=== PATIENT | male | born 1955 | race Asian ===

== ENCOUNTER 2016-07-24 10:33 | Inpatient (IN) | payer BC ==
--- NOTE | ~2016-07-24 | CR72 ---
[facility] A Service of [facility] & [facility] RADIOLOGY TEXT RESULTS PATIENT: BRANDEN SINGH LOCATION: [facility] : 55 UNIT #: [id number] AGE: [address]: Mark Hartman DO SEX: M ORDER DR: [id number] [facility] [address] [place], [place] [address] [id number] E MR#: [id number] Acc #: [id number] NAME: BRANDEN SINGH : 1955 SEX: M STUDY DATE/TIME: 07/24/2016 0953 UNIT: [facility] ROOM: STUDY DESCRIPTION: CR Chest Single View Portable Attending Physician: Mark Hartman D.O. Ordering Physician: Mark Hartman D.O. Primary Care Physician: No Primary Care Physician MEDICAL IMAGING REPORT This report is preliminary unless electronic signature is present EXAM Chest, portable, 07/24/2016, 0953 hours. CLINICAL HISTORY 61-year-old man with a 2-day history of dizziness and shortness of air. COMPARISON None FINDINGS Single upright portable view demonstrates heart size within normal limits. Mediastinal, hilar, and aortic contours are normal. The pulmonary vascularity is normal and the lungs are clear. There is no effusion or pneumothorax. IMPRESSION No acute cardiopulmonary findings. Dictated by... Katelyn Kirkland M.D. THIS IS AN ELECTRONICALLY VERIFIED REPORT Katelyn Kirkland M.D. at 07/24/2016 2:07 PM EDD/sharona TD: 07/24/2016 12:23 JOB #: [id number] MEDICAL IMAGING REPORT Page 1 of 1 COPY
--- NOTE | ~2016-07-24 | ST ---
Unit #: [id number] #: [id number] Patient: BRANDEN SINGH [id number] [facility]. [address] [place], [place] [address] [id number] I MR#: [id number] NAME: BRANDEN SINGH : 1955 SEX: M STUDY DATE/TIME: 07/25/2016 UNIT: C5B ROOM: 559 STUDY DESCRIPTION: Attending Physician: James Charles M.D. Primary Care Physician: No Primary Care Physician CARDIOLOGY REPORT EXAM Exercise Cardiolite stress test. FINDINGS Baseline EKG: Normal sinus rhythm with ventricular rate 85 beats per minute, left atrial abnormality, Q wave in V1, low voltage in aVL and V2. PROCEDURE Patient walked on the treadmill for 7 minutes utilizing Nain protocol, achieving a workload of 7.8 METs. Next, 86% of maximum target heart rate achieved at 137 beats per minute with a maximum blood pressure response of 197/116 mmHg. Next, EKG during the test showed [address] depression in inferior and anterolateral leads which had some improvement toward the end of recovery phase. The patient had no complaints of chest pain, palpitations, or dizziness. IMPRESSION 1. Functional class III with a workload of 7.8 METs. 2. The patient walked for 7 minutes, achieving 86% of maximum target heart rate at 137 beats per minute with a hypertensive blood pressure response of 197/116 mmHg. 3. It is noted that patient's blood pressure decreased down to 179/100 at the end of recovery phase. 4. EKG during the test showed [address] depression inferior/anterolateral leads which showed some improvement toward the end of the recovery phase. 5. Cardiolite was injected at maximum target heart rate. 6. It is noted called the floor staff nurse to instruct to give his morning blood pressure medications as soon as possible. It is noted that he did not have his morning blood pressure medications. 7. Radionuclide test pending. Please correlate with nuclear images. Dictated by... Agustina Aquino A.P.R.N. for Ekta Alfaro/casi TD: 07/25/2016 12:21 JOB #: [id number] Unit #: [id number] #: [id number] Patient: BRANDEN SINGH CARDIOLOGY REPORT Page 1 of 1 X Agustina Aquino APRN CARDIOLOGY REPORT
--- NOTE | ~2016-07-24 | EKG ---
PATIENT: BRANDEN SINGH UNIT #: [id number] Ventricular Rate: 65 BPM Atrial Rate: 65 BPM P-R Interval: 144 ms QRS Duration: 76 ms Q-T Interval: 398 ms QTC Calculation(Bezet): 413 ms P [place]: 55 degrees Calculated R [place]: 39 degrees Calculated T [place]: 58 degrees Diagnosis Line: Normal sinus rhythm Diagnosis Line: Normal ECG Diagnosis Line: Diagnosis Line: Confirmed by PATRICIA WATTERS MD ([id number]) on Diagnosis Line: 07/25/2016 11:02:33 PM INTERPRETING MD: SEBASTIAN
--- NOTE | ~2016-07-24 | CT71 ---
[facility] A Service of [facility] & [facility] RADIOLOGY TEXT RESULTS PATIENT: BRANDEN SINGH LOCATION: [facility] 559-01 : 55 UNIT #: [id number] AGE: [address]: James Charles MD SEX: M ORDER DR: [id number] [facility] [address] [place], [place] [address] [id number] E MR#: [id number] #: [id number] NAME: BRANDEN SINGH : 1955 SEX: M STUDY DATE/TIME: 07/24/2016 10:45 UNIT: [facility] ROOM: STUDY DESCRIPTION: CT Head Wo Contrast Attending Physician: Mark Hartman D.O. Ordering Physician: Mark Hartman D.O. Primary Care Physician: Primary Care Physician No MEDICAL IMAGING REPORT This report is preliminary unless electronic signature is present EXAM CT of the brain without contrast 07/24/2016. HISTORY History supplied is dizziness, shortness of breath for 2 days. TECHNIQUE Axial imaging of the brain was performed without contrast media. This CT exam was performed with one or more of the following radiation dose reduction techniques: automatic exposure control, adjustment of mA and/or kV according to patient size, and iterative reconstruction. FINDINGS Ventricular size and configuration is normal. There is a focal area of low attenuation in the right side of the rhett. It measures approximately 8 mm in diameter. There is no associated mass effect or edema. There is no evidence of adjacent hemorrhage. There are dense calcifications in the basal ganglia. No other mass lesions, mass effect, acute hemorrhage or edema. No intra or extraaxial fluid collections are present. Bone windows are reviewed. Mastoid air cells are normally aerated. The paranasal sinuses are clear. CONCLUSION Focal area of low attenuation right side of the rhett measuring 8 mm in diameter. Statistically this most likely represents an area of prior infarction. Please correlate with the patient's clinical findings. It appears chronic. Remainder of the scan is normal. Dictated by... Nicolás Varela M.D. THIS IS AN ELECTRONICALLY VERIFIED REPORT [facility] A Service of [facility] & [facility] RADIOLOGY TEXT RESULTS PATIENT: BRANDEN SINGH LOCATION: [facility] 559-01 : 55 UNIT #: [id number] AGE: [address]: James Charles MD SEX: M ORDER DR: Nicolás Varela M.D. at 07/25/2016 7:10 AM Gillian TD: 07/24/2016 12:58 JOB #: [id number] MEDICAL IMAGING REPORT Page 1 of 1 COPY
--- NOTE | ~2016-07-24 | TH ---
Unit #: [id number] #: [id number] Patient: BRANDEN SINGH [id number] [address] [address] [id number] I MR#: [id number] NAME: BRANDEN SINGH : 1955 SEX: M STUDY DATE/TIME: 07/25/2016 UNIT: C5B ROOM: 559 STUDY DESCRIPTION: Exercise cardiolite Attending Physician: James Charles M.D. Primary Care Physician: Janell Primary Care Physician CARDIOLOGY REPORT EXAM Exercise Cardiolite stress test, nuclear portion. PROCEDURE Using technetium-99m labeled Cardiolite, rest and stress SPECT images were obtained. Multiple SPECT images were obtained in various views including horizontal and vertical long axis and short axis views of the left ventricle. Images were obtained by gated SPECT method. Patient was administered 9.9 mCi of Cardiolite at rest. Patient was administered 28 mCi of Cardiolite at peak exercise. On the stress images, there is an extremely large area of severe decreased isotope activity involving the entire anterior wall, anteroapical, anteroseptal, and inferoapical wall of the left ventricle. The rest images show normal perfusion. Comparing rest and stress images, there is an extremely large area of stress induced ischemia involving the anterior wall, anteroapical, inferoapical, and anteroseptal wall of the left ventricle. The left ventricular ejection fraction is calculated to be 58%. There is hypokinesis of the anteroapical wall. The left ventricular cavity is mildly dilated post stress. CONCLUSIONS 1. There is an extremely large area of stress induced ischemia involving the anterior wall, anteroapical, inferoapical, and anteroseptal wall of the left ventricle. 2. The left ventricular ejection fraction is calculated to be 58%. 3. There is hypokinesis involving the anteroapical wall. 4. The left ventricular cavity is mildly dilated post stress. 5. High suspicion for significant lesion involving the LAD or left main territory. Dictated by.Ekta Nails TD: 07/25/2016 13:31 JOB #: [id number] Unit #: [id number] #: [id number] Patient: NORIS SINGHH CARDIOLOGY REPORT Page 1 of 1 X Virgie Ordoñez MD <ELECTRONICALLY SIGNED> 10/18/16 1422 CARDIOLOGY REPORT
--- NOTE | ~2016-07-24 | EKG ---
PATIENT: BRANDEN SINGH UNIT #: [id number] Ventricular Rate: 72 BPM Atrial Rate: 72 BPM P-R Interval: 166 ms QRS Duration: 74 ms Q-T Interval: 396 ms QTC Calculation(Bezet): 433 ms P [place]: 67 degrees Calculated R [place]: 50 degrees Calculated T [place]: 75 degrees Diagnosis Line: Normal sinus rhythm Diagnosis Line: Nonspecific T wave abnormality Diagnosis Line: Abnormal ECG Diagnosis Line: When compared with ECG of 24-JUL-2016 09:46, Diagnosis Line: Nonspecific T wave abnormality, worse in Diagnosis Line: Anterolateral leads Diagnosis Line: Confirmed by PATRICIA WATTERS MD ([id number]) on Diagnosis Line: 07/28/2016 9:56:47 PM INTERPRETING MD: SEBASTIAN
--- NOTE | ~2016-07-24 | DS ---
Unit #: [id number] #: [id number] Patient: BRANDEN SINGH [id number] [address] [address] [id number] I MR#: [id number] NAME: BRANDEN SINGH ROOM: 559 Age: 61 Sex: M Admission Date: 07/24/2016 : 1955 Discharge Date: 07/29/2016 Attending Physician: James Charles M.D. Primary Care Physician: No Primary Care Physician DISCHARGE SUMMARY ADMITTING DIAGNOSES 1. Chest pain. 2. Dizziness. 3. Dyspnea on exertion. 4. Hypertension. 5. Hyperlipidemia. 6. Coronary artery disease with history of PCI 01/2006 to the LAD. DISCHARGE DIAGNOSES 1. Chest pain, resolved. 2. Dizziness. 3. Dyspnea on exertion. 4. Hypertension. 5. Hyperlipidemia. 6. Coronary artery disease with history of percutaneous coronary intervention 01/2006 to the left anterior descending. PROCEDURES PERFORMED 1. 07/28/2016 - the patient had a left heart catheterization with Dr. Charles. This showed a normal left main, LAD with 100% stenosis, left circumflex and RCA were normal. 2. EKG from 07/24/2016 showed normal sinus rhythm with no ST abnormality. 3. Stress Cardiolite on 07/25/2016, which showed 1 to 1 1/[address] depression in the infero/anterolateral leads. Stress images showed a large area of stress induced ischemia involving the anterior wall, anteroapical, inferoapical, and anteroseptal wall of the left ventricle. Ejection fraction was 58%. There was hypokinesis involving the anteroapical wall. HOSPITAL COURSE The patient is a 61-year-old [place] male who presented to the emergency department with complaints of chest pain. Serial troponin and EKGs were negative. The patient has a stress Cardiolite as discussed above and left heart catheterization was advised. This was performed on 07/28/2016 as discussed above. At this time Dr. Charles has advised the patient to continue medical therapy. If the angina continues they will plan to open the LAD by either PCI of consider single vessel CABG to the LAD. The patient has been advised to walk two miles daily and to stop sugar containing foods per Dr. Charles. This was discussed with the patient's sister who speaks Malian well. DISCHARGE MEDICATIONS 1. Carafate 2 g q.h.s. 2. Aspirin 81 mg daily. Unit #: [id number] #: [id number] Patient: BRANDEN SINGH 3. Plavix 75 mg daily. 4. Protonix 40 mg daily. 5. Vitamin D3 1,000 units daily. 6. Zyrtec 10 mg q.h.s. 7. Lipitor 80 mg daily. 8. Coreg 25 mg twice daily. 9. Norvasc 5 mg q.h.s. 10. Micardis 80 mg daily. 11. Carafate 1 g q. a.m. 12. Sublingual nitroglycerin 0.4 mg p.r.n. chest pain. 13. Imdur 30 mg daily. DISCHARGE INSTRUCTIONS The patient will be discharged home. Again he was advised to walk two miles daily, follow a heart healthy diet and limit sugar intake. He will followup with Dr. Charles on 10/01/2016 at 4:15 p.m. Dictated by... Tianna Lozano PRonaldA.C. for James Charles M.D. CMG/zana TD: 07/30/2016 08:36 JOB #: [id number] DISCHARGE SUMMARY Page 1 of 1 X X DISCHARGE SUMMARY
--- NOTE | ~2016-07-24 | HP ---
Unit #: [id number] #: [id number] Patient: BRANDEN SINGH [id number] [address] [place], [place] [address] [id number] E MR#: [id number] NAME: BRANDEN SINGH ROOM: Age: 61 Sex: M Admission Date: 07/24/2016 : 1955 Attending Physician: Mark Hartman D.O. Primary Care Physician: No Primary Care Physician HISTORY AND PHYSICAL CHIEF COMPLAINT Dizziness and shortness of breath. HISTORY OF PRESENT ILLNESS This is a 61-year-old [place] male. This history was taken with child study team director services. He has a prior medical history of hypertension, high cholesterol, coronary artery disease and status post PCI at [facility] 01/2016. This morning he was feeling weak and dizzy. He checked his blood pressure and it was high, so he came to the emergency room. He reports he had a similar episode yesterday. With the episodes he did have palpitations and some dyspnea on exertion. He had some left chest pain. No radiation. No diaphoresis. No nausea or vomiting. He states he does not follow with a disaster recovery analyst. He reportedly had a cardiac catheterization at [facility] last January, after an incident with temporary vision loss. Those records are not available at this time. Upon admission to the emergency room he was found to be hypertensive with his blood pressure 210/102. Chest x-ray showed no active disease, no cardiomegaly. CT of the head was done, which showed a focal area of low attenuation right side of the rhett, measuring 8 mm, likely representing an area of prior infarction and appears chronic. The remainder of the scan is normal. PAST MEDICAL HISTORY 1. Hypertension. 2. Hyperlipidemia. 3. Coronary artery disease, status post PCI 01/2016. SOCIAL HISTORY Denies smoking. Drinks one to two beers daily with dinner. He currently works. FAMILY HISTORY Denies family history of coronary artery disease. PHYSICAL EXAMINATION GENERAL: The patient is a 70-year-old [place] male resting in bed, in no acute distress. VITALS: Blood pressure 145/75, heart rate 82, respiratory rate 18, 98% oxygen saturation on room air, weight 78 kg. NECK: There is no jugular venous distension. Carotid upstrokes are normal without any bruits. Right radial pulse is easily palpable. CHEST: Clear breath sounds. Nonlabored respiratory pattern. HEART: S1 and S2. Regular rate and rhythm. No murmurs or gallops auscultated. Unit #: [id number] #: [id number] Patient: BRANDEN SINGH ABDOMEN: Soft, nontender and nondistended. There are no masses or organomegaly. Bowel sounds are normal. NEUROLOGIC: Alert and oriented times three. Moves all extremities equally. Answers questions appropriately. DIAGNOSTIC STUDIES LABORATORY: Sodium 141, potassium 3.9, chloride 110, BUN 17, creatinine 1, glucose 90, BNP 41, troponin less than 0.05. Hemoglobin 14.8, hematocrit 45, white blood cell count 4.3, platelets 164. CARDIOVASCULAR: EKG shows normal sinus rhythm. No T wave abnormalities. ASSESSMENT 1. Chest pain. 2. Dizziness. 3. Dyspnea on exertion. 4. Hypertension. 5. Hyperlipidemia. 6. Coronary artery disease, status post PCI in 01/2016. PLAN We will do a Cardiolite exercise stress test in the morning. Add amlodipine 5 mg p.o. once daily. Check a fasting lipid profile, TSH and serial troponins. Will make him n.p.o. after midnight. Will obtain his medical directors from [facility]. If the stress test shows no ischemia, he may be able to go home tomorrow. Dictated by KALEB Parham TD: 07/24/2016 14:44 JOB #: [id number] HISTORY AND PHYSICAL Page 1 of 1 X X HISTORY AND PHYSICAL
[2016-07-24 10:30] LABS: URINE SOURCE CLEAN CATCH
[~2016-07-24 10:33] MED LIST: CARAFATE1 GM PO; CARVEDILOL25 M1 PO; CLOPIDOGREL75 MG PO; LIPITOR80 MG PO; LO-DOSE ASPIRIN81 M1 PO; PANTOPRAZOLE SO40 MG PO; TELMISARTAN80 MG PO; VITAMIN D31000 UNI1 PO; ZYRTEC10 M2 PO
[2016-07-24 10:34] LABS: URINE BILIRUBIN NEG (NEG); URINE BLOOD NEG (NEG); URINE COLOR YELLOW; URINE GLUCOSE NEG (NEG); URINE KETONE NEG (NEG); URINE LEUKOCYTE ESTERASE NEG (NEG); URINE NITRATE NEG (NEG); URINE PROTEIN NEG (NEG); URINE SPECIFIC GRAVITY 1.008 (1.003-1.035)
[2016-07-24 10:34] LABS: BASOPHIL% 0.9 % (0-2.5); DIFF IND NO; EOSINOPHIL# 0.1 X10e3 (0-0.7); EOSINOPHIL% 2.1 % (0.0-7.0); HEMOGLOBIN 14.8 gm/dL (13.0-16.0); LYMPHOCYTE# 1.3 X10e3 (1.0-3.5); LYMPHOCYTE% 29.7 % (17.0-45.0); MEAN CELL VOLUME 90.6 FL (83-96); MEAN CORPUSCULAR HEMOGLOBIN 29.7 PG (28-34); MEAN CORPUSCULAR HGB CONC 32.8 g/dL (30-36); MONOCYTE# 0.4 X10e3 (0-1.0); MONOCYTE% 8.7 % (3.0-12.0); NEUTROPHIL# 2.5 X10e3 (1.5-7.1); NEUTROPHIL% 58.6 % (40-75); PLATELET COUNT 164 X10e3 (140-420); RED BLOOD COUNT 4.97 X10e (3.90-5.60); RED CELL DISTRIBUTION WIDTH 14.1 % (11.0-15.5); WHITE BLOOD COUNT 4.3 X10e3 (4.0-10.5)
[2016-07-24 10:37] LABS: CULTURE INDICATED? NO; URINE APPEARANCE CLEAR
[2016-07-24 10:49] LABS: AMPHETAMINE NEG (NEG); BARBITURATES NEG (NEG); BENZODIAZEPINES NEG (NEG); COCAINE NEG (NEG); MARIJUANA NEG (NEG); OPIATES NEG (NEG); TRICYCLIC ANTIDEPRESSANTS NEG (NEG); U METHADONE NEG (NEG)
[2016-07-24 11:06] LABS: ALBUMIN SERUM 4.2 g/dL (3.5-5.0); BILIRUBIN, DIRECT 0.2 mg/dL (0.0-0.2); BILIRUBIN,INDIRECT 0.9 mg/dL (0.0-0.9); BILIRUBIN,TOTAL 1.1 mg/dL (0.2-2.0); GLOM FILT RATE Estimated 80.9 mL/min (>60); POTASSIUM 3.9 mmol/L (3.5-5.1); PROTEIN TOTAL SERUM 6.5 g/dL (6.0-8.3)
[2016-07-24 11:48] LABS: POC - CKMB <1.0 ng/mL (0.0-7.9); POC - TROPONIN <0.05 ng/mL (<=0.05)
[2016-07-24 12:34] LABS: POC - CKMB <1.0 ng/mL (0.0-7.9); POC - TROPONIN <0.05 ng/mL (<=0.05)
[2016-07-25 08:29] LABS: CHOLESTEROL 105 mg/dL (0-200); HDL CHOLESTEROL 43 mg/dL (29-75); LDL CHOLESTEROL 51 mg/dL (-130); LDL/HDL RATIO 1 RATIO (0-4); TRIGLYCERIDES 57 mg/dL (10-160)
[2016-07-27 06:53] LABS: HEMATOCRIT 45.9 % (38.0-50.0); HEMOGLOBIN 14.9 gm/dL (13.0-16.0); MEAN CORPUSCULAR HEMOGLOBIN 29.6 PG (28-34); MEAN CORPUSCULAR HGB CONC 32.5 g/dL (30-36); MEAN PLATELET VOLUME 9.5 FL (6.5-11.5); RED BLOOD COUNT 5.04 X10e (3.90-5.60); RED CELL DISTRIBUTION WIDTH 13.9 % (11.0-15.5); WHITE BLOOD COUNT 5.1 X10e3 (4.0-10.5)
[2016-07-27 07:33] LABS: CALCIUM SERUM 9.1 mg/dL (8.4-10.2); GLOM FILT RATE Estimated 80.9 mL/min (>60); POTASSIUM 4.2 mmol/L (3.5-5.1)
[2016-07-28 05:25] LABS: HEMATOCRIT 45.3 % (38.0-50.0); HEMOGLOBIN 14.7 gm/dL (13.0-16.0); MEAN CELL VOLUME 91.2 FL (83-96); MEAN CORPUSCULAR HEMOGLOBIN 29.6 PG (28-34); MEAN CORPUSCULAR HGB CONC 32.4 g/dL (30-36); MEAN PLATELET VOLUME 9.3 FL (6.5-11.5); RED BLOOD COUNT 4.96 X10e (3.90-5.60); RED CELL DISTRIBUTION WIDTH 13.9 % (11.0-15.5); WHITE BLOOD COUNT 4.9 X10e3 (4.0-10.5)
[2016-07-28 05:42] LABS: PARTIAL THROMBOPLASTIN TIME 23.8 SECONDS (23.5-31.3); PROTHROMBIN TIME (PATIENT) 10.7 SECONDS (9.6-11.5)
[2016-07-28 07:01] LABS: CALCIUM SERUM 9.3 mg/dL (8.4-10.2); GLOM FILT RATE Estimated 80.9 mL/min (>60); POTASSIUM 4.8 mmol/L (3.5-5.1)
[2016-07-29] MEDS ORDERED: AMLODIPINE BESYL5 MG PO (09:10)
[2016-07-29] MEDS ORDERED: IMDUR PO (09:11)
[2016-07-29] MEDS ORDERED: NITROSTAT0.4 MG SL (09:12)
== END 2016-07-29 10:45 | disposition home or self-care (01) | DRG 287 ==
LOC: CED 10:33 → CEDOF 13:45 → C5B 15:26
PROVIDERS: Emergency Medicine; Internal Medicine Cardiovascular Disease
PROC: 4A023N7 Measurement of Cardiac Sampling and Pressure, Left Heart, Percutaneous Approach (ICD-10-PCS; principal; 2016-07-28)
PROC: B211YZZ Fluoroscopy of Multiple Coronary Arteries using Other Contrast (ICD-10-PCS; 2016-07-28)
PROC: B215YZZ Fluoroscopy of Left Heart using Other Contrast (ICD-10-PCS; 2016-07-28)
DX: I25.119 Atherosclerotic heart disease of native coronary artery with unspecified angina pectoris (principal); I10 Essential (primary) hypertension; E66.9 Obesity, unspecified; R42 Dizziness and giddiness; Z95.5 Presence of coronary angioplasty implant and graft
CPT/HCPCS: 36415; 70450; 71010; 78452; 80048; 80061; 80076; 80307; 81003; 82553; 82947; 83690; 83880; 84443; 84484; 85025; 85027; 85610; 85730; 93005; 93017; 96360; 96361; 99285; A9500; C1769; C1887; C1894; J1644; J2250; J3010

== ENCOUNTER → 2016-10-08 | Outpatient (CLI) | payer BC ==
[~2016-10-08] MED LIST changes: +AMLODIPINE BESYL5 MG PO; +IMDUR PO; +NITROSTAT0.4 MG SL
--- NOTE | ~2016-10-08 | EKG ---
PATIENT: BRANDEN SINGH UNIT #: [id number] Ventricular Rate: 69 BPM Atrial Rate: 69 BPM P-R Interval: 148 ms QRS Duration: 76 ms Q-T Interval: 398 ms QTC Calculation(Bezet): 426 ms P [place]: 61 degrees Calculated R [place]: 38 degrees Calculated T [place]: 50 degrees Diagnosis Line: Normal sinus rhythm Diagnosis Line: Normal ECG Diagnosis Line: When compared with ECG of 28-JUL-2016 05:36, Diagnosis Line: Nonspecific T wave abnormality no longer evident Diagnosis Line: in Anterolateral leads Diagnosis Line: Confirmed by RASHI PEREZ, CHAVA ([id number]) on Diagnosis Line: 10/09/2016 8:54:26 AM INTERPRETING MDClyde ALATORRE
[2016-10-08 07:22] LABS: PARTIAL THROMBOPLASTIN TIME 25.4 SECONDS (23.5-31.3); PROTHROMBIN TIME (PATIENT) 10.6 SECONDS (10.0-11.7)
[2016-10-08 07:31] LABS: CALCIUM SERUM 9.1 mg/dL (8.4-10.2); CREATININE SERUM 1.1 mg/dL (0.6-1.4); GLOM FILT RATE Estimated 72.1 mL/min (>60); POTASSIUM 4.8 mmol/L (3.5-5.1)
[2016-10-08 07:50] LABS: HEMATOCRIT 46.8 % (38.0-50.0); HEMOGLOBIN 15.4 gm/dL (13.0-16.0); MEAN CELL VOLUME 90.8 FL (83-96); MEAN CORPUSCULAR HEMOGLOBIN 29.9 PG (28-34); MEAN PLATELET VOLUME 9.7 FL (6.5-11.5); RED BLOOD COUNT 5.15 X10e (3.90-5.60); RED CELL DISTRIBUTION WIDTH 13.4 % (11.0-15.5); WHITE BLOOD COUNT 4.9 X10e3 (4.0-10.5)
== END | disposition home or self-care (01) ==
LOC: CCVL 06:14
PROVIDERS: Internal Medicine Cardiovascular Disease
DX: I25.10 Atherosclerotic heart disease of native coronary artery without angina pectoris (principal); R07.89 Other chest pain; Z95.5 Presence of coronary angioplasty implant and graft; I10 Essential (primary) hypertension; K21.9 Gastro-esophageal reflux disease without esophagitis; E78.5 Hyperlipidemia, unspecified; Z82.5 Family history of asthma and other chronic lower respiratory diseases
CPT/HCPCS: 36415; 80048; 85027; 85610; 85730; 93005; C1725; C1769; C1887; J0461; J1644; J2250; J3010